=== PATIENT | male | born 1960 | race American Indian/Alaskan Native ===

== ENCOUNTER 2018-06-16 14:53 | Emergency (ER) | payer MEDICAID, OTHER ==
[2018-06-16 16:26] LABS: BASO % 0.4 % (0.0-2.0); HEMOGLOBIN 16.1 g/dL (12.0-18.0); LYMPH # 0.9 K/uL (1.0-4.3); LYMPH % 7.9 % (20.0-40.0); MEAN CELL VOLUME 81.9 fl (80.0-94.0); MEAN CORPUSCULAR HEMOGLOBIN 27.1 pg (27.0-31.0); MEAN PLATELET VOLUME 7.6 fl (7.2-11.7); MONO # 0.9 K/uL (0.0-0.8); NEUT # 9.7 K/uL (1.8-7.0); NEUT % 83.7 % (50.0-75.0); PLATELET COUNT 265 K/uL (130-400); RBC 5.95 Mil/uL (4.40-5.90); RED CELL DISTRIBUTION WIDTH 15.2 % (11.5-14.5); WHITE BLOOD COUNT 11.6 K/uL (4.8-10.8)
[2018-06-16 16:30] LABS: URINE BILIRUBIN NEGATIVE (NEGATIVE); URINE BLOOD SMALL (NEGATIVE); URINE CLARITY SLIGHTY-CLOUDY (Clear); URINE COLOR YELLOW (YELLOW); URINE GLUCOSE (UA) NEG (NEGATIVE); URINE HYALINE CAST 0-2 /hpf (0-2); URINE LEUKOCYTE ESTERASE NEG Leu/uL (Negative); URINE PROTEIN NEGATIVE (NEGATIVE); URINE UROBILINOGEN 0.2-1.0 mg/dL (0.2-1.0)
--- NOTE | 2018-06-16 16:51 | ED PDOC ---
HPI: Abdomen Time Seen by Provider: 06/16/18 15:20 Chief Complaint (Nursing): Abdominal Pain Chief Complaint (Provider): Abdominal Pain History Per: Patient History/Exam Limitations: no limitations Onset/Duration Of Symptoms: Days (x1 day) Current Symptoms Are (Timing): Intermittent Episodes Additional Complaint(s): Pastora Cerrato is a 57 year old male with a past medical history of HTN, arthritis and gout, who presents to the emergency department with non-radiating left flank pain, onset x1 day ago. Patient reports that the pain is not constant and that it comes and goes, worsening with movement and twisting of the body. He reports that he has "gout arthritis of the left shoulder" and is taking meloxicam for it. Patient denies having any vomiting, urinary problems, diarrhea, difficulty breathing, cough or chest pain. PMD: No provider Past Medical History Reviewed: Historical Data, Nursing Documentation, Vital Signs Vital Signs: Last Vital Signs Temp 98.6 F 06/16/18 14:53 Pulse 108 H 06/16/18 14:53 Resp 20 06/16/18 14:53 BP 166/107 H 06/16/18 14:53 Pulse Ox 97 06/16/18 14:53 - Medical History PMH: Arthritis, HTN Other PMH: Gout - Surgical History Other surgeries: ACL repair - Family History Family History: States: Unknown Family Hx - Home Medications Home Medications: Ambulatory Orders Medication Instructions Recorded Azithromycin [Z-Charli] 250 mg PO ASDIR #6 tab 06/16/18 Meloxicam 15 mg PO DAILY #30 tablet 06/16/18 - Allergies Allergies/Adverse Reactions: Allergies Allergy/AdvReac Type Severity Reaction Status Date / Time No Known Allergies Allergy Verified 06/16/18 14:53 Review of Systems ROS Statement: Except As Marked, All Systems Reviewed And Found Negative Cardiovascular: Negative for: Chest Pain Respiratory: Negative for: Cough, Shortness of Breath Gastrointestinal: Positive for: Abdominal Pain (left flank and rib pain). Negative for: Vomiting, Diarrhea Genitourinary Male: Negative for: Dysuria, Frequency, Incontinence, Hematuria Physical Exam - Reviewed Nursing Documentation Reviewed: Yes Vital Signs Reviewed: Yes - Physical Exam Appears: Positive for: Non-toxic, No Acute Distress Head Exam: Positive for: ATRAUMATIC, NORMOCEPHALIC Skin: Positive for: Normal Color. Negative for: Rash Eye Exam: Positive for: Normal appearance Neck: Positive for: Normal, Painless ROM, Supple Cardiovascular/Chest: Positive for: Regular Rate, Rhythm. Negative for: Murmur Respiratory: Positive for: Normal Breath Sounds. Negative for: Respiratory Distress Gastrointestinal/Abdominal: Positive for: Tenderness (left lower rib; (-) abdominal tenderness) Back: Positive for: Normal Inspection. Negative for: L CVA Tenderness, R CVA Tenderness, Vertebral Tenderness - Laboratory Results Result Diagrams: 06/16/18 16:10 06/16/18 16:10 - ECG O2 Sat by Pulse Oximetry: 97 (RA) Pulse Ox Interpretation: Normal - Progress Re-evaluation Time: 18:25 Condition: Re-examined, Improved Medical Decision Making Medical Decision Making: Time: 15:55 Impression: Left flank pain and left rib pain Differential diagnosis includes but not limited to musculoskeletal pain, nephrolithiasis, and less likely pneumonia, pulmonary effusion, or rib fracture. Plan: --CT of chest, abdomen, pelvis w/o contrast, --BMP, --ED urine dipstick, --CBC with differential --Flexiril 10 mg PO --Toradol 30 mg IVP --Urinalysis Chest, abdomen, and pelvis CT FINDINGS: CHEST: LUNGS: No pulmonary mass. There is mild scarring of the lung bases as well as mild irregular pleural parenchymal density at the left lung base posteriorly. Minimal pleural thickening at the right lung base posteriorly. PLEURAL SPACES: No evidence of pneumothorax. No pleural effusion. HEART: No cardiomegaly. No significant pericardial effusion. Coronary artery calcification present. LYMPH NODES: No lymphadenopathy is evident. ABDOMEN AND PELVIS: LIVER: Unremarkable. No focal lesions. GALLBLADDER AND BILE DUCTS: The gallbladder appears within normal limits. No radioopaque gallstones are seen. No biliary ductal dilatation is evident. PANCREAS: Unremarkable. SPLEEN: Unremarkable. ADRENAL GLANDS: Unremarkable. KIDNEYS, URETERS, AND BLADDER: Unremarkable. No hydronephrosis or nephrolithiasis. No uterteral or bladder calculi. Prostate gland mildly enlarged. STOMACH AND BOWEL: Unremarkable appearance of the stomach and bowel. No evidence of bowel obstruction. No evidence suggesting enteritis or colitis. Mild diverticular changes present sigmoid colon. APPENDIX: No evidence of acute appendicitis on CT examination. PERITONEUM: No free fluid. No free air. LYMPH NODES: No lymphadenopathy is evident. VASCULATURE: No evidence of abdominal aortic aneurysm. BONES: No acute osseous abnormality. IMPRESSION: Mildly irregular pleural parenchymal density at the left lung base posteriorly and mild pleural thickening. Mild scarring both lung bases. Minimal pleural thickening right lung base. No suspicious mass or lymphadenopathy within the abdomen and pelvis. Prostate gland mildly enlarged. Scribe Attestation: Documented by Parth Pryor, acting as a scribe for Josef Mcdonald MD. Provider Scribe Attestation: All medical record entries made by the Scribe were at my direction and personally dictated by me. I have reviewed the chart and agree that the record accurately reflects my personal performance of the history, physical exam, medical decision making, and the department course for this patient. I have also personally directed, reviewed, and agree with the discharge instructions and disposition. Disposition - Clinical Impression Clinical Impression: Flank pain, Pleural thickening, Lung infiltrate on CT - Patient ED Disposition Is Patient to be Admitted: No Doctor Will See Patient In The: Office Counseled Patient/Family Regarding: Studies Performed, Diagnosis, Need For Followup - Disposition [facility]errals: [facility] Disposition: Routine/Home Disposition Time: 18:26 Condition: GOOD Additional Instructions: PASTORA CERRATO, thank you for letting us take care of you today. Your provider was Josef Mcdonald MD and you were treated for ABD PAIN. The emergency medical care you received today was directed at your acute symptoms. If you were prescribed any medication, please fill it and take as directed. It may take several days for your symptoms to resolve. Return to the Emergency Department if your symptoms worsen, do not improve, or if you have any other problems. Please contact your doctor or call one of the physicians/clinics you have been referred to that are listed on the Patient Visit Information form that is included in your discharge packet. Bring any paperwork you were given at [facility] with you along with any medications you are taking to your follow up visit. Our treatment cannot replace ongoing medical care by a primary care provider outside of the emergency department. Thank you for allowing the [facility] team to be part of your care today. If you had an X-Ray or CT scan: A Radiologist will review the ED reading if any change in treatment is needed we will contact you. If you had a blood, urine, or wound culture: It will take several days for the results, if any change in treatment is needed we will contact you. If you had an STI test: It will take 48 hours for the results. Please call after 1 week if you have not heard back. Prescriptions: Azithromycin [Z-Charli] 250 mg PO ASDIR #6 tab Meloxicam 15 mg PO DAILY #30 tablet Instructions: Flank Pain (DC), Pleural Effusion
[2018-06-16 17:14] LABS: BANDS 1 % (0-2); LYMPHOCYTE 8 % (20-50); MONOCYTE 8 % (0-10); NEUTROPHIL 83 % (42-75); TOTAL CELLS COUNTED 100
[2018-06-16 17:15] LABS: PLATELET ESTIMATE NORMAL (NORMAL)
[2018-06-16 19:05] VITALS: BP 142/107; PULSE 92; RESP 18; TEMP 98.5; O2SAT 95
--- NOTE | 2018-06-17 10:49 | CT ---
Date of service: 06/16/2018 PROCEDURE: CT Chest, Abdomen and Pelvis without intravenous contrast HISTORY: left flank left rib pain COMPARISON: CT is TECHNIQUE: Radiation dose: Total exam DLP = 733.27 mGy-cm. This CT exam was performed using one or more of the following dose reduction techniques: Automated exposure control, adjustment of the mA and/or kV according to patient size, and/or use of iterative reconstruction technique. FINDINGS: CT CHEST WITHOUT CONTRAST: LUNGS: Clear. No nodule, mass or consolidation. MEDIASTINUM: Unremarkable. Normal caliber aorta and pulmonary arterial trunk. Normal size heart. LYMPH NODES: Unremarkable. PLEURA: Unremarkable. No pneumothorax. No pleural fluid. BONES: Unremarkable. OTHER FINDINGS: None. CT ABDOMEN AND PELVIS: LIVER: Unremarkable. No gross lesion or ductal dilatation. GALLBLADDER AND BILE DUCTS: Unremarkable. PANCREAS: Unremarkable. No gross lesion or ductal dilatation. SPLEEN: Unremarkable. ADRENALS: Unremarkable. No mass. KIDNEYS AND URETERS: Unremarkable. No hydronephrosis. No solid mass. VASCULATURE: No aortic atherosclerotic calcification or mural plaque present. Unremarkable. No aortic aneurysm. BOWEL: Diverticulosis without an acute inflammatory component or other associated pathologic process. APPENDIX: No abnormalities to suggest acute appendicitis. No right lower quadrant inflammatory processes identified. PERITONEUM: Unremarkable. No free fluid. No free air. LYMPH NODES: Unremarkable. No enlarged lymph nodes. BLADDER: Unremarkable. REPRODUCTIVE: Unremarkable. BONES: No acute fracture. OTHER FINDINGS: None. IMPRESSION: No significant or acute findings to account for/ related to the clinical presentation. Additional benign and/or incidental findings described above. Concordant results (preliminary interpretation) provided by [employer]. Procedure Completed: 16:50. Preliminary Report: Dictated and Authenticated: 17:54. Final Interpretation: 10:45. June 17, 2018
== END 2018-06-16 19:05 | disposition home or self-care (01) ==
LOC: H.ER 14:53
DX: R10.9 Unspecified abdominal pain (principal); J92.9 Pleural plaque without asbestos; R91.8 Other nonspecific abnormal finding of lung field; I10 Essential (primary) hypertension; M10.9 Gout, unspecified
CPT/HCPCS: 71250; 74176; 80048; 81003; 85025; 96374; 99283; J1885

== ENCOUNTER 2018-09-10 14:36 | Inpatient (IN) | payer BC, MEDICAID, SELFPAY ==
--- NOTE | 2018-09-10 15:56 | ED PDOC ---
HPI: Hypertension/Hypotension Time Seen by Provider: 09/10/18 15:10 Chief Complaint (Nursing): High Blood Pressure Chief Complaint (Provider): High Blood Pressure History Per: Patient History/Exam Limitations: no limitations Quality Of Symptoms: Asymptomatic Additional Complaint(s): 58 year old male with past history of gout and hypertension, is referred to the emergency department by his primary doctor for an evaluation of high blood pressure. He states that he recently moved to [place] and was being evaluated by dr cueto when he was told to go to the hospital for further evaluation of his blood pressure. Patient is asymptomatic and denies chest pain, shortness of breath, headache, dizziness, leg pain or swelling. Additionally, patient is requesting to get his uric acid level checked secondary to history of gout and reports that he has been noncompliant with blood pressure medications for the past 5 years. PCP: Dr. Darrius Estrella Past Medical History Reviewed: Historical Data, Nursing Documentation, Vital Signs Vital Signs: Last Vital Signs Temp 98.1 F 09/10/18 14:40 Pulse 86 09/10/18 14:40 Resp 16 09/10/18 14:40 BP 222/133 H 09/10/18 14:40 Pulse Ox 99 09/10/18 14:40 - Medical History PMH: Arthritis, HTN Other PMH: gout - Surgical History Surgical History: Denies: No Surg Hx Other surgeries: ACL - Family History Family History: States: Unknown Family Hx - Social History Alcohol: Occasional (last drink was on 09/06/18) - Allergies Allergies/Adverse Reactions: Allergies Allergy/AdvReac Type Severity Reaction Status Date / Time No Known Allergies Allergy Verified 09/10/18 14:39 Review of Systems ROS Statement: Except As Marked, All Systems Reviewed And Found Negative Cardiovascular: Negative for: Chest Pain Respiratory: Negative for: Shortness of Breath Musculoskeletal: Negative for: Leg Pain (or swelling) Neurological: Negative for: Headache, Dizziness Physical Exam - Reviewed Nursing Documentation Reviewed: Yes Vital Signs Reviewed: Yes - Physical Exam Appears: Positive for: Well, Non-toxic, No Acute Distress Head Exam: Positive for: ATRAUMATIC, NORMAL INSPECTION, NORMOCEPHALIC Skin: Positive for: Normal Color Eye Exam: Positive for: Normal appearance, EOMI, PERRL ENT: Positive for: Normal ENT Inspection. Negative for: Pharyngeal Erythema Neck: Positive for: Normal Cardiovascular/Chest: Positive for: Regular Rate, Rhythm, Chest Non Tender Respiratory: Positive for: Normal Breath Sounds. Negative for: Wheezing, Respiratory Distress Gastrointestinal/Abdominal: Positive for: Normal Exam, Soft. Negative for: Tenderness Extremity: Positive for: Normal ROM (upper/lower). Negative for: Pedal Edema, Calf Tenderness Neurologic/Psych: Positive for: Alert, Oriented (x3). Negative for: Motor/Sensory Deficits, Aphasia, Facial Droop - Laboratory Results Result Diagrams: 09/10/18 18:16 09/10/18 18:16 - ECG O2 Sat by Pulse Oximetry: 99 (RA) Pulse Ox Interpretation: Normal Medical Decision Making Medical Decision Making: Time: 1329 Initial Plan: uncontroled htn, non compliant with meds * Labs with troponin * Catapres 0.1mg PO * Trandate 20mg IVP Time: 1624 --EKG: normal sinus rhythm at 73 beats per minute. \noted end organ damage with elevated cr at 1.6, combined with elevated bp only minimally helped with meds here, will admit for hypertensive urgency and start cardene drmilan Time: 2005 --Uric acid elevated at 11.1. Dr. Estrella made aware of case. requests cardiology consult with dr martinez Time: 2027 --Case discussed with Dr. Martinez, grab driver, agree with plan and agree with plan to admit to ICU for blood pressure control. Dr. Dee made made aware, as well. Scribe Attestation: Documented by Nicole Morton, acting as a scribe for Nik Torres MD. Provider Scribe Attestation: All medical record entries made by the Scribe were at my direction and personally dictated by me. I have reviewed the chart and agree that the record accurately reflects my personal performance of the history, physical exam, medical decision making, and the department course for this patient. I have also personally directed, reviewed, and agree with the discharge instructions and disposition. Disposition - Clinical Impression Clinical Impression: Hypertensive urgency - Patient ED Disposition Is Patient to be Admitted: Yes Counseled Patient/Family Regarding: Studies Performed, Diagnosis - Disposition Disposition Time: 20:00 Condition: STABLE
[2018-09-10 18:35] LABS: BASO % 0.5 % (0.0-2.0); EOS # 0.1 K/uL (0.0-0.7); EOS % 2.7 % (0.0-4.0); HEMOGLOBIN 14.5 g/dL (12.0-18.0); LYMPH # 1.8 K/uL (1.0-4.3); LYMPH % 35.4 % (20.0-40.0); MEAN CELL VOLUME 80.7 fl (80.0-94.0); MEAN CORPUSCULAR HEMOGLOBIN 26.7 pg (27.0-31.0); MEAN CORPUSCULAR HGB CONC 33.1 g/dL (33.0-37.0); MEAN PLATELET VOLUME 7.6 fl (7.2-11.7); MONO # 0.4 K/uL (0.0-0.8); MONO % 8.3 % (0.0-10.0); NEUT # 2.7 K/uL (1.8-7.0); NEUT % 53.1 % (50.0-75.0); NRBC % 0.3 % (0.0-0.0); RBC 5.44 Mil/uL (4.40-5.90); WHITE BLOOD COUNT 5.2 K/uL (4.8-10.8)
[2018-09-10 18:40] LABS: ALB/GLOB RATIO 1.2 (1.0-2.1); ALBUMIN 4.3 g/dL (3.5-5.0); URIC ACID 11.1 mg/Dl (3.5-8.5)
[2018-09-10 18:56] LABS: TROPONIN I 0.014 ng/mL (0.00-0.120)
[2018-09-10] MEDS ORDERED: Labetalol 5 mg/ml Inj 20ML IVP STA ×2 (20:02→20:29)
[2018-09-10] MEDS ORDERED: Labetalol 5mg/ml (4ml) ONE (20:23)
[2018-09-10] MEDS ORDERED: Nicardipine 20 MG/200 ML 20 MG/200 ML BAG IV ONE (20:32)
--- NOTE | 2018-09-10 21:25 | CP.PCM.CON ---
History of Present Illness - History of Present Illness History of Present Illness: CC/Reason for ICU: hypertensive urgency HPI: This is a 58 y/o male with gout and untreated, uncontrolled HTN who comes in from PCPs office with SBPs elevated to > 200. Patient states he is relocating to this area and was in the process of establishing a PCP, and that is why he went in for today's office visit. In the office, his BP was noted to be severely elevated, and he was sent to the ER. He denies any JOHNSON, CP, SOB or blood in the urine. He states that he was dx'ed with HTN 8-10 years ago, and has not been on medications for the past several years because of insurance issues. Patient states his gout is currently under control, last flare was in Aug. He is not on any maintenance medications, but states that he has taken meloxicam PRN for when he has had a flare. Patient had no other c/c. PCP: Cesario ROS: 14 systems reviewed, negative other than HPI MHx: HTN, gout SHx: L ACL surgery Allergies: NKDA Medications: PRN meloxicam Family Hx: M- HTN, F- HTN Social Hx: lives with gf, occasional cigars, rare social EtOH, no drugs Contact: Pilar Smith, , Past Patient History - Past Social History Alcohol: Occasional (last drink was on 09/06/18) - CARDIAC Hx Hypertension: Yes - MUSCULOSKELETAL/RHEUMATOLOGICAL Hx Arthritis: Yes - PSYCHIATRIC Hx Substance Use: No - ANESTHESIA Hx Anesthesia: Yes Hx Anesthesia Reactions: No Hx Malignant Hyperthermia: No Meds Allergies/Adverse Reactions: Allergies Allergy/AdvReac Type Severity Reaction Status Date / Time No Known Allergies Allergy Verified 09/10/18 14:39 - Medications Medications: Current Medications Nicardipine HCl (Cardene Iv Premix) 20 mg in 200 mls @ 50 mls/hr IV .Q4H ONE; P rotocol Stop: 09/11/18 00:31 Physical Exam - Constitutional Appears: No Acute Distress - Head Exam Head Exam: ATRAUMATIC, NORMOCEPHALIC - Eye Exam Eye Exam: EOMI, PERRL - ENT Exam ENT Exam: Mucous Membranes Moist - Neck Exam Neck exam: Positive for: Full Rom - Respiratory Exam Respiratory Exam: Clear to Auscultation Bilateral, NORMAL BREATHING PATTERN - Cardiovascular Exam Cardiovascular Exam: REGULAR RHYTHM, +S1, +S2 - GI/Abdominal Exam GI & Abdominal Exam: Normal Bowel Sounds, Soft - Extremities Exam Extremities exam: Positive for: full ROM, normal inspection - Neurological Exam Neurological exam: Alert, CN II-XII Intact, Oriented x3 - Psychiatric Exam Psychiatric exam: Normal Affect, Normal Mood - Skin Skin Exam: Dry, Warm Results - Vital Signs Recent Vital Signs: Last Vital Signs Temp 98.1 F 09/10/18 14:40 Pulse 92 H 09/10/18 20:00 Resp 16 09/10/18 20:00 BP 187/124 H 09/10/18 20:00 Pulse Ox 99 09/10/18 20:31 - Labs Result Diagrams: 09/10/18 18:16 09/10/18 18:16 Labs: Laboratory Results - last 24 hr 09/10/18 09/10/18 18:16 18:16 WBC 5.2 D RBC 5.44 Hgb 14.5 Hct 43.8 MCV 80.7 MCH 26.7 L MCHC 33.1 RDW 16.0 H Plt Count 206 MPV 7.6 Neut % (Auto) 53.1 Lymph % (Auto) 35.4 [place] % (Auto) 8.3 Eos % (Auto) 2.7 Baso % (Auto) 0.5 Neut # (Auto) 2.7 Lymph # (Auto) 1.8 [place] # (Auto) 0.4 Eos # (Auto) 0.1 Baso # (Auto) 0.0 Sodium 139 Potassium 4.2 Chloride 103 Carbon Dioxide 25 Anion Gap 15 BUN 18 Creatinine 1.6 H Est GFR ( Amer) 54 Est GFR (Non-Af Amer) 44 Random Glucose 91 Uric Acid 11.1 H Calcium 10.0 Total Bilirubin 0.5 AST 25 ALT 32 Alkaline Phosphatase 77 Troponin I 0.0140 Total Protein 7.9 Albumin 4.3 Globulin 3.7 Albumin/Globulin Ratio 1.2 - EKG Data EKG Interpreted by: Myself EKG shows normal: Sinus rhythm Rate: Normal - EKG Data EKG comments: Likely LVH Assessment & Plan (1) Hypertensive urgency Assessment and Plan: Patient with uncontrolled HTN, no symptoms but has some worsening renal function. -Admit to ICU -Serial trops -UA -Nicardipine gtt Status: Acute (2) ONUR (acute kidney injury) Assessment and Plan: Patient with elevated Cr of unknown duration; cannot r/o effect of [facility] uncontrolled HTN -Will check UA -Urine lytes, Cr -Repeat BMP in AM -Consider renal u/s for further w/u Status: Acute (3) Gout Assessment and Plan: Stable currently. No acute flare. -Uric acid level pending -Pain medications if required -Will likely need to be placed on allopurinol Status: Acute (4) DVT prophylaxis Assessment and Plan: SCDs only given severely elevated BP. Status: Acute
[2018-09-10] MEDS ORDERED: Nicardipine 20 MG/200 ML 20 MG/200 ML BAG ONE (21:46)
[2018-09-10 23:09] LABS: URINE BILIRUBIN NEGATIVE (NEGATIVE); URINE BLOOD NEGATIVE (NEGATIVE); URINE CLARITY CLEAR (Clear); URINE COLOR YELLOW (YELLOW); URINE GLUCOSE (UA) NEG (NEGATIVE); URINE LEUKOCYTE ESTERASE NEG Leu/uL (Negative); URINE PROTEIN NEGATIVE (NEGATIVE); URINE UROBILINOGEN 0.2-1.0 mg/dL (0.2-1.0)
[2018-09-11] MEDS: Labetalol 5mg/ml (4ml) IVP PRN ×3 (03:22→17:22)
[2018-09-11 06:16] LABS: HEMOGLOBIN 13.9 g/dL (12.0-18.0); MEAN CELL VOLUME 81.7 fl (80.0-94.0); MEAN CORPUSCULAR HEMOGLOBIN 26.7 pg (27.0-31.0); MEAN CORPUSCULAR HGB CONC 32.7 g/dL (33.0-37.0); RBC 5.19 Mil/uL (4.40-5.90); RED CELL DISTRIBUTION WIDTH 15.9 % (11.5-14.5); WHITE BLOOD COUNT 3.7 K/uL (4.8-10.8)
[2018-09-11 06:25] LABS: BLOOD UREA NITROGEN 17 mg/dl (9-20); CALCIUM 9.7 mg/dL (8.4-10.2); GFR NON-AFRICAN AMERICAN 48; HDL CHOLESTEROL 51 MG/DL (30-70)
[2018-09-11 06:35] LABS: LDL CHOLESTEROL 113 mg/dL (0-129)
--- NOTE | 2018-09-11 12:11 | CP.PCM.CON ---
History of Present Illness - History of Present Illness History of Present Illness: 58 year old male admitted with uncontrolled hypertension, PMH hypertension, gout, elevated Cr noted , no chest pain or shortness of breath currently at rest. Past Patient History - Past Medical History & Family History Past Medical History?: Yes - Past Social History Smoking Status: Current Some Days Smoker - CARDIAC Hx Hypertension: Yes - PULMONARY Hx Respiratory Disorders: No - NEUROLOGICAL Hx Neurological Disorder: No - HEENT Hx HEENT Problems: No - RENAL Hx Chronic Kidney Disease: No - ENDOCRINE/METABOLIC Hx Endocrine Disorders: No - HEMATOLOGICAL/ONCOLOGICAL Hx Blood Disorders: No Hx AIDS: No Hx Human Immunodeficiency Virus (HIV): No - INTEGUMENTARY Hx Dermatological Problems: No - MUSCULOSKELETAL/RHEUMATOLOGICAL Hx Arthritis: Yes Hx Falls: No Hx Gout: Yes - GASTROINTESTINAL Hx Gastrointestinal Disorders: No - GENITOURINARY/GYNECOLOGICAL Hx Genitourinary Disorders: No - PSYCHIATRIC Hx Psychophysiologic Disorder: No Hx Substance Use: No - SURGICAL HISTORY Hx Surgeries: No - ANESTHESIA Hx Anesthesia: No Hx Anesthesia Reactions: No Hx Malignant Hyperthermia: No Has any member of the family had a problem w/ anesthesia?: No Meds Allergies/Adverse Reactions: Allergies Allergy/AdvReac Type Severity Reaction Status Date / Time No Known Allergies Allergy Verified 09/10/18 14:39 - Medications Medications: Current Medications Labetalol HCl (Trandate) 20 mg IVP Q6H PRN PRN Reason: For SBP >180 Last Admin: 09/11/18 03:22 Dose: 20 mg Metoprolol Tartrate (Lopressor) 25 mg PO Q12 JUNIOR Last Admin: 09/11/18 08:50 Dose: 25 mg Physical Exam - Head Exam Head Exam: NORMAL INSPECTION - ENT Exam ENT Exam: Normal Exam - Respiratory Exam Respiratory Exam: Clear to Auscultation Bilateral - Cardiovascular Exam Cardiovascular Exam: REGULAR RHYTHM - GI/Abdominal Exam GI & Abdominal Exam: Normal Bowel Sounds - Extremities Exam Extremities exam: Positive for: normal inspection Results - Vital Signs Recent Vital Signs: Last Vital Signs Temp 98.1 F 09/11/18 08:43 Pulse 78 09/11/18 08:50 Resp 20 09/11/18 08:43 BP 191/102 H 09/11/18 08:50 Pulse Ox 99 09/11/18 08:43 - Labs Result Diagrams: 09/11/18 05:55 03/06/19 05:55 Labs: Laboratory Results - last 24 hr 09/10/18 09/10/18 09/10/18 18:16 18:16 22:45 WBC 5.2 D RBC 5.44 Hgb 14.5 Hct 43.8 MCV 80.7 MCH 26.7 L MCHC 33.1 RDW 16.0 H Plt Count 206 MPV 7.6 Neut % (Auto) 53.1 Lymph % (Auto) 35.4 [place] % (Auto) 8.3 Eos % (Auto) 2.7 Baso % (Auto) 0.5 Neut # (Auto) 2.7 Lymph # (Auto) 1.8 [place] # (Auto) 0.4 Eos # (Auto) 0.1 Baso # (Auto) 0.0 Sodium 139 Potassium 4.2 Chloride 103 Carbon Dioxide 25 Anion Gap 15 BUN 18 Creatinine 1.6 H Est GFR ( Amer) 54 Est GFR (Non-Af Amer) 44 Random Glucose 91 Uric Acid 11.1 H Calcium 10.0 Total Bilirubin 0.5 AST 25 ALT 32 Alkaline Phosphatase 77 Troponin I 0.0140 Total Protein 7.9 Albumin 4.3 Globulin 3.7 Albumin/Globulin Ratio 1.2 Triglycerides Cholesterol LDL Cholesterol Direct HDL Cholesterol Urine Color Yellow Urine Clarity Clear Urine pH 7.0 Ur Specific [place] 1.015 Urine Protein Negative Urine Glucose (UA) Neg Urine Ketones Negative Urine Blood Negative Urine Nitrate Negative Urine Bilirubin Negative Urine Urobilinogen 0.2-1.0 Ur Leukocyte Esterase Neg Urine RBC (Auto) 1 Urine Microscopic WBC < 1 Ur Random Creatinine Ur Random Sodium Ur Random Potassium 09/10/18 09/10/18 09/11/18 22:45 22:45 05:55 WBC 3.7 L RBC 5.19 Hgb 13.9 Hct 42.4 MCV 81.7 MCH 26.7 L MCHC 32.7 L RDW 15.9 H Plt Count 185 MPV Neut % (Auto) Lymph % (Auto) [place] % (Auto) Eos % (Auto) Baso % (Auto) Neut # (Auto) Lymph # (Auto) [place] # (Auto) Eos # (Auto) Baso # (Auto) Sodium Potassium Chloride Carbon Dioxide Anion Gap BUN Creatinine Est GFR ( Amer) Est GFR (Non-Af Amer) Random Glucose Uric Acid Calcium Total Bilirubin AST ALT Alkaline Phosphatase Troponin I Total Protein Albumin Globulin Albumin/Globulin Ratio Triglycerides Cholesterol LDL Cholesterol Direct HDL Cholesterol Urine Color Urine Clarity Urine pH Ur Specific [place] Urine Protein Urine Glucose (UA) Urine Ketones Urine Blood Urine Nitrate Urine Bilirubin Urine Urobilinogen Ur Leukocyte Esterase Urine RBC (Auto) Urine Microscopic WBC Ur Random Creatinine 141.6 Ur Random Sodium 120 Ur Random Potassium 66.2 09/11/18 05:55 WBC RBC Hgb Hct MCV MCH MCHC RDW Plt Count MPV Neut % (Auto) Lymph % (Auto) [place] % (Auto) Eos % (Auto) Baso % (Auto) Neut # (Auto) Lymph # (Auto) [place] # (Auto) Eos # (Auto) Baso # (Auto) Sodium 141 Potassium 4.3 Chloride 104 Carbon Dioxide 23 Anion Gap 18 BUN 17 Creatinine 1.5 Est GFR ( Amer) 58 Est GFR (Non-Af Amer) 48 Random Glucose 105 Uric Acid Calcium 9.7 Total Bilirubin AST ALT Alkaline Phosphatase Troponin I < 0.0120 Total Protein Albumin Globulin Albumin/Globulin Ratio Triglycerides 113 Cholesterol 212 H LDL Cholesterol Direct 113 HDL Cholesterol 51 Urine Color Urine Clarity Urine pH Ur Specific [place] Urine Protein Urine Glucose (UA) Urine Ketones Urine Blood Urine Nitrate Urine Bilirubin Urine Urobilinogen Ur Leukocyte Esterase Urine RBC (Auto) Urine Microscopic WBC Ur Random Creatinine Ur Random Sodium Ur Random Potassium Assessment & Plan - Assessment and Plan (Free Text) Assessment: #1 Uncontrolled hypertension: add Norvasc 5mg to regimen, increase lopressor 50mg q 12 #2 Obtain ECHOcardiogram assess for LVH, EKG #3 Would obtain renal consult given gout elevated Cr
[2018-09-11] MEDS ORDERED: Labetalol 5mg/ml (4ml) IVP STA (14:05)
--- NOTE | 2018-09-11 15:25 | CARD ---
APPROVED REPORT Date of service: 09/11/2018 EKG Measurement Heart [id number] <Conclusion> Normal sinus rhythm Normal Electrocardiogram
--- NOTE | 2018-09-11 15:53 | CARD ---
APPROVED REPORT Date of service: 09/11/2018 EXAM: Two-dimensional and M-mode echocardiogram with Doppler and color Doppler. Other Information Quality : GoodRhythm : NSR INDICATION Hypertension/HCVD 2D DIMENSIONS IVSd1.69 (0.7-1.1cm)LVDd4.40 (3.9-5.9cm) LVOT Diameter2.17 (1.8-2.4cm)PWd1.44 (0.7-1.1cm) IVSs1.55 (0.8-1.2cm)LVDs3.53 (2.5-4.0cm) FS (%) 19.8 %PWs1.36 (0.8-1.2cm) M-Mode DIMENSIONS Left Atrium (MM)4.00 (2.5-4.0cm)IVSd1.44 (0.7-1.1cm) Aortic Root3.34 (2.2-3.7cm)LVDd4.97 (4.0-5.6cm) Aortic Cusp Exc.2.00 (1.5-2.0cm)PWd1.44 (0.7-1.1cm) IVSs1.88 cmFS (%) 43 % LVDs2.81 (2.0-3.8cm)PWs1.78 cm Aortic Valve AoV Peak Kygynywq284.0cm/sAoV VTI20.1cmAO Peak GR.5mmHg LVOT Peak Unugsvcy84.2cm/sLVOT VTI18.14cmAO Mean GR.3mmHg JESSICA (VMAX)1.22mk0PPK (VTI)1.66cm2 Mitral Valve MV E Euhcrgdr49.4cm/sMV DECEL [id number] A Najbmzxt47.4cm/s MV FMA67pcU/A ratio0.6MVA (PHT)3.36cm2 TDI Lateral E' Peak V6.60cm/sMedial E' Peak V4.24cm/sE/Lateral E'6.6 E/Medial E'10.2 LEFT VENTRICLE The left ventricle is normal size. There is mild to moderate concentric left ventricular hypertrophy. The left ventricular systolic function is normal. The estimated ejection fraction is 60-65% No regional wall motion abnormalities noted.. Transmitral Doppler flow pattern is Grade I-abnormal relaxation pattern. No left ventricle thrombus noted on this study. There is no ventricular septal defect visualized. There is no left ventricular aneurysm. There is no mass noted in the left ventricle. RIGHT VENTRICLE The right ventricle is normal size. There is normal right ventricular wall thickness. The right ventricular systolic function is normal. ATRIA The left atrium is mildly dilated. The right atrium size is normal. The interatrial septum is intact with no evidence for an atrial septal defect. AORTIC VALVE The aortic valve is normal in structure. Trace aortic regurgitation is present. There is no aortic valvular stenosis. There is no aortic valvular vegetation. MITRAL VALVE The mitral valve is normal in structure. There is no evidence of mitral valve prolapse. There is no mitral valve stenosis. There is no mitral valve regurgitation noted. TRICUSPID VALVE The tricuspid valve is normal in structure. There is no tricuspid valve regurgitation noted. There is no tricuspid valve prolapse or vegetation. There is no tricuspid valve stenosis. PULMONIC VALVE The pulmonary valve is normal in structure. There is no pulmonic valvular regurgitation. There is no pulmonic valvular stenosis. GREAT VESSELS The aortic root is normal in size. The ascending aorta is normal in size. The pulmonary artery is normal. The IVC is normal in size and collapses >50% with inspiration. PERICARDIAL EFFUSION There is no pericardial effusion. There is no pleural effusion. <Conclusion> There is mild to moderate concentric left ventricular hypertrophy. The estimated ejection fraction is 60-65% Transmitral Doppler flow pattern is Grade I-abnormal relaxation pattern. The left atrium is mildly dilated. Trace aortic regurgitation is present. There is no tricuspid valve regurgitation noted.
--- NOTE | 2018-09-11 19:34 | CP.PCM.HP ---
History of Present Illness - History of Present Illness History of Present Illness: 58 yo with hx of HTN admitted for uncontrolled HTN Present on Admission - Present on Admission Any Indicators Present on Admission: No Past Patient History - Past Medical History & Family History Past Medical History?: Yes - Past Social History Smoking Status: Current Some Days Smoker - CARDIAC Hx Hypertension: Yes - PULMONARY Hx Respiratory Disorders: No - NEUROLOGICAL Hx Neurological Disorder: No - HEENT Hx HEENT Problems: No - RENAL Hx Chronic Kidney Disease: No - ENDOCRINE/METABOLIC Hx Endocrine Disorders: No - HEMATOLOGICAL/ONCOLOGICAL Hx Blood Disorders: No Hx AIDS: No Hx Human Immunodeficiency Virus (HIV): No - INTEGUMENTARY Hx Dermatological Problems: No - MUSCULOSKELETAL/RHEUMATOLOGICAL Hx Arthritis: Yes Hx Falls: No Hx Gout: Yes - GASTROINTESTINAL Hx Gastrointestinal Disorders: No - GENITOURINARY/GYNECOLOGICAL Hx Genitourinary Disorders: No - PSYCHIATRIC Hx Psychophysiologic Disorder: No Hx Substance Use: No - SURGICAL HISTORY Hx Surgeries: No - ANESTHESIA Hx Anesthesia: No Hx Anesthesia Reactions: No Hx Malignant Hyperthermia: No Has any member of the family had a problem w/ anesthesia?: No Meds Allergies/Adverse Reactions: Allergies Allergy/AdvReac Type Severity Reaction Status Date / Time No Known Allergies Allergy Verified 09/10/18 14:39 Physical Exam - Respiratory Exam Respiratory Exam: NORMAL BREATHING PATTERN - Cardiovascular Exam Cardiovascular Exam: REGULAR RHYTHM - GI/Abdominal Exam GI & Abdominal Exam: Normal Bowel Sounds Results - Vital Signs Recent Vital Signs: Last Vital Signs Temp 98.3 F 09/11/18 15:39 Pulse 89 09/11/18 17:21 Resp 17 09/11/18 15:39 BP 194/106 H 09/11/18 17:21 Pulse Ox 99 09/11/18 15:39 - Labs Result Diagrams: 09/11/18 05:55 09/11/18 05:55 Labs: Laboratory Results - last 24 hr 09/10/18 09/10/18 09/10/18 22:45 22:45 22:45 WBC RBC Hgb Hct MCV MCH MCHC RDW Plt Count Sodium Potassium Chloride Carbon Dioxide Anion Gap BUN Creatinine Est GFR ( Amer) Est GFR (Non-Af Amer) Random Glucose Calcium Troponin I Triglycerides Cholesterol LDL Cholesterol Direct HDL Cholesterol Urine Color Yellow Urine Clarity Clear Urine pH 7.0 Ur Specific [place] 1.015 Urine Protein Negative Urine Glucose (UA) Neg Urine Ketones Negative Urine Blood Negative Urine Nitrate Negative Urine Bilirubin Negative Urine Urobilinogen 0.2-1.0 Ur Leukocyte Esterase Neg Urine RBC (Auto) 1 Urine Microscopic WBC < 1 Ur Random Creatinine 141.6 Ur Random Sodium 120 Ur Random Potassium 66.2 09/11/18 09/11/18 09/11/18 05:55 05:55 12:10 WBC 3.7 L RBC 5.19 Hgb 13.9 Hct 42.4 MCV 81.7 MCH 26.7 L MCHC 32.7 L RDW 15.9 H Plt Count 185 Sodium 141 Potassium 4.3 Chloride 104 Carbon Dioxide 23 Anion Gap 18 BUN 17 Creatinine 1.5 Est GFR ( Amer) 58 Est GFR (Non-Af Amer) 48 Random Glucose 105 Calcium 9.7 Troponin I < 0.0120 < 0.0120 Triglycerides 113 Cholesterol 212 H LDL Cholesterol Direct 113 HDL Cholesterol 51 Urine Color Urine Clarity Urine pH Ur Specific [place] Urine Protein Urine Glucose (UA) Urine Ketones Urine Blood Urine Nitrate Urine Bilirubin Urine Urobilinogen Ur Leukocyte Esterase Urine RBC (Auto) Urine Microscopic WBC Ur Random Creatinine Ur Random Sodium Ur Random Potassium Assessment & Plan - Assessment and Plan (Free Text) Assessment: hTN uncontrolled Cardiology CKD ? Nephrology US Gout Allopurinol ? - Date & Time Date: 09/11/18 Time: 22:22
--- NOTE | 2018-09-12 05:56 | CARD ---
APPROVED REPORT Date of service: 09/10/2018 EKG Measurement Heart [id number] CT [id number] <Conclusion> Normal sinus rhythm Normal ECG
[2018-09-12 06:05] LABS: HEMOGLOBIN 14.2 g/dL (12.0-18.0); MEAN CELL VOLUME 81.9 fl (80.0-94.0); MEAN CORPUSCULAR HEMOGLOBIN 26.8 pg (27.0-31.0); MEAN CORPUSCULAR HGB CONC 32.7 g/dL (33.0-37.0); RBC 5.31 Mil/uL (4.40-5.90); RED CELL DISTRIBUTION WIDTH 16.4 % (11.5-14.5); WHITE BLOOD COUNT 4.3 K/uL (4.8-10.8)
[2018-09-12 06:34] LABS: CALCIUM 9.7 mg/dL (8.4-10.2)
--- NOTE | 2018-09-12 10:12 | CP.PCM.CON ---
History of Present Illness - History of Present Illness History of Present Illness: This patient who is 58 years of age Afro-[place]namese male was admitted because of uncontrolled hypertension. I was called to see him for abnormal kidney function as well. Patient stated that he has long history of hypertension and he used to take medications sometime ago but he stopped taking medication also he has a long history of gout he used to take medication which is not taken he was on vacation recently and he was eating a lot of shellfish among other things which precipitated his gouty attack. He is not aware about chronic kidney disease and presented to the emergency room with high blood pressure which was systolic in the range of over 200 apparently however he responded to the current medication somewhat. Social history patient smoking occasionally he denies any significant alcohol except of occasionally and socially And patient moving from location to location apparently. Review of Systems - Review of Systems Systems not reviewed;Unavailable: Unstable Vital Signs - Constitutional Constitutional: absent: Chills - EENT Eyes: As Per HPI Ears: absent: Ear Discharge Nose/Mouth/Throat: absent: Epistaxis, Nasal Congestion, Post Nasal Drip - Cardiovascular Cardiovascular: absent: Acrocyanosis, Chest Pain, Leg Edema - Respiratory Respiratory: absent: Cough, Dyspnea, Hemoptysis - Gastrointestinal Gastrointestinal: absent: Abdominal Pain, Diarrhea, Melena - Genitourinary Genitourinary: Nocturia. absent: Freq UTI - Musculoskeletal Musculoskeletal: Arthralgias, Joint Swelling. absent: Atrophy - Neurological Neurological: As Per HPI, Abnormal Hearing, Abnormal Movements, Abnormal Speech, Behavioral Changes, Burning Sensations, Confusion, Convulsions, Disequilibrium, Dizziness, Focal Weakness, Frequent Falls, Headaches, Lack of Coordination, Loss of Vision, Memory Loss, Paresthesias, Radicular Pain, Restless Legs, Sensory Deficit, Syncope, Tingling, Tremor, Vertigo, Weakness, Other Visual Disturbances, Other. absent: Abnormal Gait, Numbness - Psychiatric Psychiatric: absent: As Per HPI, Abnormal Sleep Pattern, Anhedonia, Anxiety, Aud itory Hallucinations, Behavioral Changes, Change in Appetite, Change in Libido, Confusion, Depression, Difficulty Concentrating, Hallucinations, Homicidal Ideation, Hopelessness, Irritability, Memory Loss, Mood Swings, Panic Attacks, Paranoia, Suicidal Ideation, Visual Hallucinations, Tactile Hallucinations, Other - Endocrine Endocrine: absent: As Per HPI, Change in Body Appearance, Change in Libido, Cold Intolorance, Deepening of Voice, Excessive Sweating, Fatigue, Flushing, Heat Intolorance, Increase in Ring/Shoe/Hat Size, Palpitations, Polydipsia, Poly phagia, Polyuria, Other - Hematologic/Lymphatic Hematologic: absent: As Per HPI, Easy Bleeding, Easy Bruising, Lymphadenopathy, Other Past Patient History - Past Medical History & Family History Past Medical History?: Yes - Past Social History Smoking Status: Current Some Days Smoker - CARDIAC Hx Hypertension: Yes - PULMONARY Hx Respiratory Disorders: No - NEUROLOGICAL Hx Neurological Disorder: No - HEENT Hx HEENT Problems: No - RENAL Hx Chronic Kidney Disease: No - ENDOCRINE/METABOLIC Hx Endocrine Disorders: No - HEMATOLOGICAL/ONCOLOGICAL Hx Blood Disorders: No Hx AIDS: No Hx Human Immunodeficiency Virus (HIV): No - INTEGUMENTARY Hx Dermatological Problems: No - MUSCULOSKELETAL/RHEUMATOLOGICAL Hx Arthritis: Yes Hx Falls: No Hx Gout: Yes - GASTROINTESTINAL Hx Gastrointestinal Disorders: No - GENITOURINARY/GYNECOLOGICAL Hx Genitourinary Disorders: No - PSYCHIATRIC Hx Psychophysiologic Disorder: No Hx Substance Use: No - SURGICAL HISTORY Hx Surgeries: No - ANESTHESIA Hx Anesthesia: No Hx Anesthesia Reactions: No Hx Malignant Hyperthermia: No Has any member of the family had a problem w/ anesthesia?: No Meds Allergies/Adverse Reactions: Allergies Allergy/AdvReac Type Severity Reaction Status Date / Time No Known Allergies Allergy Verified 09/10/18 14:39 - Medications Medications: Current Medications Amlodipine Besylate (Norvasc) 5 mg PO DAILY [facility] Last Admin: 09/12/18 09:56 Dose: 5 mg Hydralazine HCl (Apresoline) 10 mg PO Q8H [facility] Last Admin: 09/12/18 09:53 Dose: 10 mg Labetalol HCl (Trandate) 20 mg IVP Q6H PRN PRN Reason: For SBP >180 Last Admin: 09/11/18 17:22 Dose: 20 mg Metoprolol Tartrate (Lopressor) 50 mg PO Q12 [facility] Last Admin: 09/12/18 09:55 Dose: 50 mg Physical Exam - Eye Exam Eye Exam: absent: Conjunctival injection - ENT Exam ENT Exam: Mucous Membranes Moist - Neck Exam Neck exam: Negative for: Lymphadenopathy - Respiratory Exam Respiratory Exam: NORMAL BREATHING PATTERN. absent: Chest Wall Tenderness - Cardiovascular Exam Cardiovascular Exam: REGULAR RHYTHM. absent: Gallop, JVD, Rubs - GI/Abdominal Exam GI & Abdominal Exam: Normal Bowel Sounds, Soft - Extremities Exam Extremities exam: Negative for: calf tenderness - Back Exam Back exam: absent: CVA tenderness (L), CVA tenderness (R) - Neurological Exam Neurological exam: Alert - Psychiatric Exam Psychiatric exam: Normal Affect - Skin Skin Exam: Dry, Intact, Normal Color, Warm Results - Vital Signs Recent Vital Signs: Last Vital Signs Temp 98.2 F 09/12/18 08:27 Pulse 81 09/12/18 09:56 Resp 20 09/12/18 08:27 BP 157/97 H 09/12/18 09:56 Pulse Ox 96 09/12/18 08:27 - Labs Result Diagrams: 09/12/18 05:40 09/12/18 05:40 Labs: Laboratory Results - last 24 hr 09/11/18 09/12/18 09/12/18 12:10 05:40 05:40 WBC 4.3 L RBC 5.31 Hgb 14.2 Hct 43.5 MCV 81.9 MCH 26.8 L MCHC 32.7 L RDW 16.4 H Plt Count 177 Sodium 141 Potassium 4.3 Chloride 108 H Carbon Dioxide 23 Anion Gap 14 BUN 21 H Creatinine 1.6 H Est GFR ( Amer) 54 Est GFR (Non-Af Amer) 44 Random Glucose 96 Calcium 9.7 Troponin I < 0.0120 Assessment & Plan (1) ONUR (acute kidney injury) Assessment and Plan: Patient presented with high blood pressure urgency and he responded somewhat to the current medication but the blood pressure is still elevated above target Most likely related to essential hypertension patient has very long history of high blood pressure and just not taking medications or just intermittently Acute kidney injury most likely with serum creatinine 1.6 although I cannot rule out underlying chronic kidney disease with this long history of hypertension History of gout with hyperuricemia serum uric acid 11 Recommendation Hydrochlorothiazide 12.5 mg to the management of hypertension Increase Norvasc 10 mg daily Urinalysis negative for protein but we will check microalbuminemia Patient to have ultrasound of the kidney and arterial renal Doppler I do not think there is a need to do aldosterone or Renin study at this point however that could be contemplated later on if blood pressure persisted Add allopurinol 100 mg daily for now or Uloric Renal diet recommended at this point with about 50 to 60 g protein 2 g sodium, no restriction for potassium that might help also his gouty arthritis perhaps Status: Acute (2) Gout Status: Acute (3) Hypertensive urgency Status: Acute
--- NOTE | 2018-09-12 12:29 | CP.PCM.PN ---
Subjective - Date & Time of Evaluation Date of Evaluation: 09/12/18 Time of Evaluation: 12:27 - Subjective Subjective: no c/o doing well Objective - Vital Signs/Intake and Output Vital Signs (last 24 hours): Temp Pulse Resp BP Pulse Ox 98.3 F 85 20 164/94 H 96 09/12/18 12:01 09/12/18 12:01 09/12/18 12:01 09/12/18 12:01 09/12/18 12:01 - Medications Medications: Current Medications Amlodipine Besylate (Norvasc) 5 mg PO DAILY [facility] Last Admin: 09/12/18 09:56 Dose: 5 mg Hydralazine HCl (Apresoline) 10 mg PO Q8H [facility] Last Admin: 09/12/18 09:53 Dose: 10 mg Hydrochlorothiazide (Microzide) 12.5 mg PO DAILY [facility] Labetalol HCl (Trandate) 20 mg IVP Q6H PRN PRN Reason: For SBP >180 Last Admin: 09/11/18 17:22 Dose: 20 mg Metoprolol Tartrate (Lopressor) 50 mg PO Q12 [facility] Last Admin: 09/12/18 09:55 Dose: 50 mg - Labs Labs: 09/12/18 05:40 09/12/18 05:40 - Head Exam Head Exam: NORMAL INSPECTION - Neck Exam Neck Exam: Normal Inspection - Respiratory Exam Respiratory Exam: Clear to Ausculation Bilateral - Cardiovascular Exam Cardiovascular Exam: REGULAR RHYTHM - GI/Abdominal Exam GI & Abdominal Exam: Normal Bowel Sounds - Back Exam Back Exam: NORMAL INSPECTION Assessment and Plan - Assessment and Plan (Free Text) Assessment: Hypertension better controlled Echocardiogram LVH with Normal LVEF Renal US is pending Renal Consult Added HCTZ 12.5mg/ Norvasc inc 10mg qd Plan: Pt can be discharged from cardiology standpoint
--- NOTE | 2018-09-12 21:03 | CP.PCM.PN ---
Subjective - Date & Time of Evaluation Date of Evaluation: 09/12/18 Time of Evaluation: 22:22 - Subjective Subjective: BP improved Renal US pending Objective - Vital Signs/Intake and Output Vital Signs (last 24 hours): Temp Pulse Resp BP Pulse Ox 98.4 F 82 17 156/99 H 96 09/12/18 19:27 09/12/18 19:27 09/12/18 19:27 09/12/18 19:27 09/12/18 19:27 - Medications Medications: Current Medications Amlodipine Besylate (Norvasc) 10 mg PO DAILY [facility] Hydralazine HCl (Apresoline) 10 mg PO Q8H [facility] Last Admin: 09/12/18 16:42 Dose: 10 mg Hydrochlorothiazide (Microzide) 12.5 mg PO DAILY [facility] Last Admin: 09/12/18 12:52 Dose: 12.5 mg Labetalol HCl (Trandate) 20 mg IVP Q6H PRN PRN Reason: For SBP >180 Last Admin: 09/11/18 17:22 Dose: 20 mg Metoprolol Tartrate (Lopressor) 50 mg PO Q12 [facility] Last Admin: 09/12/18 09:55 Dose: 50 mg - Labs Labs: 09/12/18 05:40 09/12/18 05:40 - Respiratory Exam Respiratory Exam: NORMAL BREATHING PATTERN - Cardiovascular Exam Cardiovascular Exam: REGULAR RHYTHM - GI/Abdominal Exam GI & Abdominal Exam: Normal Bowel Sounds Assessment and Plan - Assessment and Plan (Free Text) Assessment: HTN Urgency improved B nemo Ca channel Diuretic Cardiology CKD ? ONUR Nephrology Renal US and arterial doppler Gout Allopurinol
--- NOTE | 2018-09-13 09:44 | CP.PCM.PN ---
Subjective - Date & Time of Evaluation Date of Evaluation: 09/13/18 Time of Evaluation: 09:44 - Subjective Subjective: Patient in bed he appears to be comfortable no chest pain no shortness of breath. Although the blood pressure is still elevated but he is asymptomatic Objective - Vital Signs/Intake and Output Vital Signs (last 24 hours): Temp Pulse Resp BP Pulse Ox 98.3 F 82 18 177/113 H 97 09/13/18 07:57 09/13/18 08:41 09/13/18 07:57 09/13/18 08:41 09/13/18 07:57 Intake and Output: 09/13/18 09/13/18 06:59 18:59 Intake Total 100 Balance 100 - Medications Medications: Current Medications Amlodipine Besylate (Norvasc) 10 mg PO DAILY [facility] Last Admin: 09/13/18 08:41 Dose: 10 mg Clonidine HCl (Catapres) 0.1 mg PO TID [facility] Hydralazine HCl (Apresoline) 10 mg PO Q8H [facility] Last Admin: 09/13/18 08:40 Dose: 10 mg Hydrochlorothiazide (Microzide) 12.5 mg PO DAILY [facility] Last Admin: 09/13/18 08:41 Dose: 12.5 mg Labetalol HCl (Trandate) 20 mg IVP Q6H PRN PRN Reason: For SBP >180 Last Admin: 09/11/18 17:22 Dose: 20 mg Metoprolol Tartrate (Lopressor) 50 mg PO Q12 [facility] Last Admin: 09/13/18 08:40 Dose: 50 mg - Labs Labs: 09/12/18 05:40 09/12/18 05:40 - Constitutional Appears: No Acute Distress - Eye Exam Eye Exam: Conjunctival injection - ENT Exam ENT Exam: Mucous Membranes Moist - Neck Exam Neck Exam: absent: Lymphadenopathy - Respiratory Exam Respiratory Exam: NORMAL BREATHING PATTERN. absent: Chest Wall Tenderness - Cardiovascular Exam Cardiovascular Exam: absent: Gallop, JVD, Rubs - GI/Abdominal Exam GI & Abdominal Exam: Soft, Normal Bowel Sounds - Extremities Exam Extremities Exam: absent: Calf Tenderness - Back Exam Back Exam: absent: CVA tenderness (L), CVA tenderness (R) - Neurological Exam Neurological Exam: Alert - Psychiatric Exam Psychiatric exam: Normal Affect - Skin Skin Exam: absent: Cyanosis Assessment and Plan (1) ONUR (acute kidney injury) Assessment & Plan: Acute kidney injury probably related to hypertensive urgency although I cannot rule out underlying chronic kidney disease stage III? Hypertension still not controlled we will adjust more medication Hyperuricemia started on allopurinol History of recurrent gout in the past Recommendation Blood pressure is still high add clonidine 0.1 mg every 8 hours hold if systolic blood pressure 120 or less Ultrasound of the kidney pending Renal Doppler artery to be done as outpatient which has not been done here as of yet Follow-up as outpatient Continue allopurinol Status: Acute (2) Gout Status: Acute (3) Hypertensive urgency Status: Acute
--- NOTE | 2018-09-13 13:05 | CP.PCM.PN ---
Subjective - Date & Time of Evaluation Date of Evaluation: 09/13/18 Time of Evaluation: 13:04 - Subjective Subjective: no c/o Clonidine added to regimen Objective - Vital Signs/Intake and Output Vital Signs (last 24 hours): Temp Pulse Resp BP Pulse Ox 98.5 F 82 18 167/92 H 95 09/13/18 12:05 09/13/18 12:10 09/13/18 12:05 09/13/18 12:10 09/13/18 12:05 Intake and Output: 09/13/18 09/13/18 06:59 18:59 Intake Total 100 Balance 100 - Medications Medications: Current Medications Allopurinol (Zyloprim) 100 mg PO DAILY [facility] Last Admin: 09/13/18 12:10 Dose: 100 mg Amlodipine Besylate (Norvasc) 10 mg PO DAILY [facility] Last Admin: 09/13/18 08:41 Dose: 10 mg Clonidine HCl (Catapres) 0.1 mg PO TID [facility] Last Admin: 09/13/18 12:10 Dose: 0.1 mg Hydralazine HCl (Apresoline) 10 mg PO Q8H [facility] Last Admin: 09/13/18 08:40 Dose: 10 mg Hydrochlorothiazide (Microzide) 12.5 mg PO DAILY [facility] Last Admin: 09/13/18 08:41 Dose: 12.5 mg Labetalol HCl (Trandate) 20 mg IVP Q6H PRN PRN Reason: For SBP >180 Last Admin: 09/11/18 17:22 Dose: 20 mg Metoprolol Tartrate (Lopressor) 50 mg PO Q12 [facility] Last Admin: 09/13/18 08:40 Dose: 50 mg - Labs Labs: 09/12/18 05:40 09/12/18 05:40 - Head Exam Head Exam: NORMAL INSPECTION - Respiratory Exam Respiratory Exam: Clear to Ausculation Bilateral - Cardiovascular Exam Cardiovascular Exam: REGULAR RHYTHM - GI/Abdominal Exam GI & Abdominal Exam: Normal Bowel Sounds - Extremities Exam Extremities Exam: Normal Inspection Assessment and Plan - Assessment and Plan (Free Text) Plan: Clonidine added to regimen Renal US pending Pt can likely be discharged in am , after effect of Clonidine assessed
--- NOTE | 2018-09-13 13:22 | CP.PCM.PCO ---
Assessment & Plan - Assessment and Plan (Free Text) Assessment: pt. seen and examined , denies h/a , cp, dizziness or sob BP , uncontrolled, range 157/95 -177/113 patient started on clonodine tid, norvasc dose increased to 10 mg daily will cont. to monitor BP until controlled f/u renal us ; results pending
--- NOTE | 2018-09-13 13:24 | US ---
Date of service: 09/12/2018 PROCEDURE: Ultrasound of the Kidneys HISTORY: dio COMPARISON: None available. TECHNIQUE: Sonogram of the kidneys. FINDINGS: Abdominal aorta and renal artery Doppler assessment yields the following results: Abdominal aorta peak systolic velocity 60.8 centimeters/second. Right renal artery proximacl mid and distal segmental velocities: 114.6, 73.5 and 82.9 centimeter/second. Left renal artery proximal, mid and distal segment velocities: 77.8, 86.8 and 97.6 centimeters/second. Renal artery aortic ratios are 1.9 at the right and 1.6 at the left, both of which fall within the normal range. No definite evidence to suggest renal artery stenosis bilaterally. Segmental arcuate renal artery branch arterial evaluation not included in our protocol. RIGHT KIDNEY: Measures: 9.8 x 4.3 x 4.1 cm. Normal in size, contour and echogenicity. No stone, solid mass lesion or hydronephrosis visualized. LEFT KIDNEY: Measures: 8.9 x 3.5 x 4.3 cm. Normal in size, contour and echogenicity. No stone, solid mass lesion or hydronephrosis visualized. A lower pole simple cyst is identified measuring 0.9 x 0.9 x 1.2 cm. OTHER FINDINGS: None. IMPRESSION: No sonographic evidence to suggest renal artery stenosis. Other than a small lower pole left renal simple cyst, parenchymal evaluation both kidneys is unremarkable.
--- NOTE | 2018-09-13 19:11 | CP.PCM.PN ---
Subjective - Date & Time of Evaluation Date of Evaluation: 09/13/18 Time of Evaluation: 22:22 - Subjective Subjective: Renal US wnl Started on Clonidine Objective - Vital Signs/Intake and Output Vital Signs (last 24 hours): Temp Pulse Resp BP Pulse Ox 99.1 F 83 16 128/82 96 09/13/18 15:47 09/13/18 16:53 09/13/18 15:47 09/13/18 16:53 09/13/18 15:47 - Medications Medications: Current Medications Allopurinol (Zyloprim) 100 mg PO DAILY [facility] Last Admin: 09/13/18 12:10 Dose: 100 mg Amlodipine Besylate (Norvasc) 10 mg PO DAILY [facility] Last Admin: 09/13/18 08:41 Dose: 10 mg Clonidine HCl (Catapres) 0.1 mg PO TID [facility] Last Admin: 09/13/18 16:53 Dose: 0.1 mg Hydralazine HCl (Apresoline) 10 mg PO Q8H [facility] Last Admin: 09/13/18 16:52 Dose: 10 mg Hydrochlorothiazide (Microzide) 12.5 mg PO DAILY [facility] Last Admin: 09/13/18 08:41 Dose: 12.5 mg Labetalol HCl (Trandate) 20 mg IVP Q6H PRN PRN Reason: For SBP >180 Last Admin: 09/11/18 17:22 Dose: 20 mg Metoprolol Tartrate (Lopressor) 50 mg PO Q12 [facility] Last Admin: 09/13/18 08:40 Dose: 50 mg - Labs Labs: 09/12/18 05:40 09/12/18 05:40 - Respiratory Exam Respiratory Exam: NORMAL BREATHING PATTERN - Cardiovascular Exam Cardiovascular Exam: REGULAR RHYTHM - GI/Abdominal Exam GI & Abdominal Exam: Normal Bowel Sounds Assessment and Plan - Assessment and Plan (Free Text) Assessment: HTN Urgency improved B nemo Ca channel Diuretic Clonidine Cardiology CKD ? ONUR Nephrology Renal US arterial doppler No EDELMIRA Gout Allopurinol
--- NOTE | 2018-09-14 06:58 | CP.PCM.PN ---
Subjective - Date & Time of Evaluation Date of Evaluation: 09/14/18 Time of Evaluation: 22:22 - Subjective Subjective: BP improved Objective - Vital Signs/Intake and Output Vital Signs (last 24 hours): Temp Pulse Resp BP Pulse Ox 97.9 F 80 20 121/80 94 L 09/14/18 03:59 09/14/18 03:59 09/14/18 03:59 09/14/18 03:59 09/14/18 03:59 - Medications Medications: Current Medications Allopurinol (Zyloprim) 100 mg PO DAILY [facility] Last Admin: 09/13/18 12:10 Dose: 100 mg Amlodipine Besylate (Norvasc) 10 mg PO DAILY [facility] Last Admin: 09/13/18 08:41 Dose: 10 mg Clonidine HCl (Catapres) 0.1 mg PO TID [facility] Last Admin: 09/13/18 16:53 Dose: 0.1 mg Hydralazine HCl (Apresoline) 10 mg PO Q8H [facility] Last Admin: 09/14/18 01:49 Dose: 10 mg Hydrochlorothiazide (Microzide) 12.5 mg PO DAILY [facility] Last Admin: 09/13/18 08:41 Dose: 12.5 mg Labetalol HCl (Trandate) 20 mg IVP Q6H PRN PRN Reason: For SBP >180 Last Admin: 09/11/18 17:22 Dose: 20 mg Metoprolol Tartrate (Lopressor) 50 mg PO Q12 [facility] Last Admin: 09/13/18 21:53 Dose: 50 mg - Labs Labs: 09/12/18 05:40 09/12/18 05:40 - Respiratory Exam Respiratory Exam: NORMAL BREATHING PATTERN - Cardiovascular Exam Cardiovascular Exam: REGULAR RHYTHM - GI/Abdominal Exam GI & Abdominal Exam: Normal Bowel Sounds Assessment and Plan - Assessment and Plan (Free Text) Assessment: HTN Urgency improved B nemo Ca channel Diuretic Clonidine Cardiology CKD ? ONUR Nephrology Renal US arterial doppler No EDELMIRA Gout Allopurinol WBC ??
[2018-09-14 08:09] VITALS: O2SAT 98
[2018-09-14 15:49] VITALS: BP 144/85; RESP 16; TEMP 98.2
[2018-09-14 16:30] VITALS: PULSE 84
== END 2018-09-14 18:15 | disposition home or self-care (01) | DRG 305 ==
LOC: H.ER 14:36 → H.ERHOLD 20:27 → UNDOADMIN 20:27 → H.ERHOLD 09-11 01:46 → H.TEL 09-11 03:03
PROVIDERS: ADMIT Family Medicine Geriatric Medicine; ATTEND Family Medicine Geriatric Medicine
DX: I16.0 Hypertensive urgency (principal); N17.9 Acute kidney failure, unspecified; Z91.14 Patient's other noncompliance with medication regimen; M10.9 Gout, unspecified; F17.290 Nicotine dependence, other tobacco product, uncomplicated; I10 Essential (primary) hypertension; M19.90 Unspecified osteoarthritis, unspecified site